=== PATIENT | female | born 1975 ===

== ENCOUNTER 2017-11-04 08:25 | Outpatient (CLI) | payer OTHER ==
[~2017-11-04 08:25] MED LIST: PEPCID40 MG PO; ZOFRAN8 MG PO
== END 2017-11-04 08:29 | disposition home or self-care (01) ==
LOC: SONOGRAMA 08:25
DX: E04.8 Other specified nontoxic goiter (principal)

== ENCOUNTER 2025-08-31 06:54 | Inpatient (IN) | payer OTHER ==
[~2025-08-31] VITALS: Ht 149.9 cm; Wt 69.9 kg
[2025-08-31] MEDS ORDERED: DICY20TA PO (07:39)
[2025-08-31] MEDS ORDERED: ACID REDUCER20 MG PO (07:39)
[2025-08-31] MEDS ORDERED: ZANAFLEX4 M1 PO (07:39)
[2025-08-31] MEDS ORDERED: NEURONTIN300 MG PO (07:39)
[2025-08-31 07:54] VITALS: BP 109/73
[2025-08-31 08:09] LABS: URINE APPEARANCE Clear; URINE BILIRRUBIN Negative (NEGATIVE); URINE BLOOD Negative; URINE COLOR Yellow; URINE GLUCOSE Negative (NEGATIVE); URINE KETONE Negative (NEGATIVE); URINE LEUKOCYTE Small; URINE NITRATE Negative; URINE PROTEIN Negative (NEGATIVE); URINE UROBILINOGEN 0.2 E.U./dl
[2025-08-31 08:13] LABS: URINE BACTERIA 1514.3 uL (0.0-1933); URINE EPITHELIAL CELLS 55.3 uL (0.0-38.8); URINE RBC 2.3 uL (0.0-20.8); URINE WBC 106.4 uL (0.0-23.2)
[2025-08-31 08:16] LABS: BASO % 0.5 % (0.1-1.2); EOS # 0.16 (0.04-0.54); EOS % 2.1 % (0.7-7.0); LYMPH # 1.29 (1.18-3.74); LYMPH % 16.9 % (19.3-53.1); MEAN PLATELET VOLUME 8.60 fl (9.4-12.4); MONO # 0.71 (0.24-0.82); MONO % 9.3 % (4.7-12.5); NEUT # 5.40 (1.56-6.13); NEUT % 70.8 % (34.0-71.1); RED CELL DISTRIBUTION WIDTH 13.3 % (11.6-14.4)
[2025-08-31 08:27] LABS: INR < 0.93
[2025-08-31 08:43] LABS: ALT/SGPT 26.0 U/L (12-78); AST/SGOT 20.0 U/L (15-37); BILIRUBIN TOTAL 0.62 mg/dL (0.3-1.2); BUN CREA RATIO 20.0 (7.0-25.0); CREATININE SERUM 0.64 mg/dL (0.55-1.02); GFR 98.63; GLOBULINA 3.5 G/DL (2.4-3.5); GLUCOSE FASTING 85.0 mg/dL (65-100); OSMOLALITY SERUM 279.0 MOSM/KG (275-295)
[2025-08-31 08:52] LABS: URINE CAST 0.29 uL (0.0-1.40); URINE YEAST FEW /hpf
[2025-08-31 08:56] LABS: URINE EPITHELIAL CELLS 0-4 /HPF
[2025-08-31 09:02] LABS: TYPE CELLS SQUAMOUS
[2025-09-13] MEDS ORDERED: DEXAMETHASONE SODIUM PHOSPHATE 4 MG/ML VIAL IV ONE (08:45)
[2025-09-13] MEDS ORDERED: ENALAPRILAT DIHYDRATE 1.25 MG/ML VIAL IV PRN (10:00)
[2025-09-13] MEDS ORDERED: ONDANSETRON HCL 2 MG/ML VIAL IV PRN (10:00)
[2025-09-13 16:00] VITALS: BP 115/73; O2SAT 97
[2025-09-13] MEDS ORDERED: TRAMADOL HCL 50 MG TABLET PO SCH (17:00)
[2025-09-13] MEDS ORDERED: CYCLOBENZAPRINE HCL 5 MG TABLET PO SCH (17:00)
[2025-09-13] MEDS ORDERED: DIPHENHYDRAMINE HCL 75 MG,LIDOCAINE HCL 30 ML,MAG HYDROX/ALUMINUM HYD/SIMETH 30 ML PO SCH (17:00)
[2025-09-13] MEDS ORDERED: ACETAMINOPHEN 500 MG GEL..CAP PO SCH (17:00)
[2025-09-13] MEDS ORDERED: PANTOPRAZOLE SODIUM 40 MG/VIAL VIAL IV PUSH SCH (21:00)
[2025-09-13] MEDS ORDERED: Calcium Carbonate 1 TAB TABLET PO SCH (21:00)
[2025-09-14] VITALS: BP 107/77; O2SAT 97
[2025-09-14] MEDS ORDERED: LEVOTHYROXINE SODIUM 100 MCG TABLET PO SCH (06:00)
[2025-09-14] MEDS ORDERED: DIPHENHYDRAMINE HCL 25 MG CAPSULE PO NR (14:15)
== END 2025-09-14 14:16 | disposition home or self-care (01) | DRG 627 ==
LOC: SURH 09-13 07:00 → O/R 09-13 07:00 → SURG 09-13 13:26
PROVIDERS: ADMIT Surgery; ATTEND Surgery
PROC: 0GTK0ZZ Resection of Thyroid Gland, Open Approach (ICD-10-PCS; principal; 2025-09-13 07:00)
DX: E04.2 Nontoxic multinodular goiter (principal)